=== PATIENT | female | born 1950 | race African-American/Black ===

== ENCOUNTER 2021-04-23 08:29 | Outpatient (CLI) | payer MEDICARE, MEDICAID | END 2021-04-23 08:30 | disposition home or self-care (01) | LOC: BICMAMMO 08:29 → MERGE 08:29 → BICMAMMO 08:30 | PROVIDERS: ATTEND Family Medicine | DX: Z12.31 Encounter for screening mammogram for malignant neoplasm of breast (principal); Z13.820 Encounter for screening for osteoporosis; N95.9 Unspecified menopausal and perimenopausal disorder; Z80.3 Family history of malignant neoplasm of breast | CPT/HCPCS: 77063; 77067; 77080 ==

== ENCOUNTER 2021-05-22 15:13 | Inpatient (IN) | payer MEDICARE, MEDICAID ==
[~2021-05-22 15:13] MED LIST: Heparin 10,000 UNITS/ 10 ML VIAL ONE
[2021-05-22] MEDS ORDERED: EPINEPHrine 1 MG/10 ML Abboject SYRINGE ONE (15:18)
[2021-05-22] MEDS ORDERED: Rocuronium Bromide 10 MG/ML (10ML VIAL) ONE (15:40)
[2021-05-22] MEDS ORDERED: Ketamine 50 MG/ML (10ML VIAL) ONE (15:40)
[2021-05-22 15:41] LABS: #Eosinphils 0.2 thou/uL (0.0-0.7); #Lymphocytes 2.3 thou/uL (1.20-3.40); #Monocytes 0.6 thou/uL (0.11-0.59); #Neutrophils 6.1 thou/uL (1.40-6.50); %Basophils 0.4 % (0.0-1.0); %Eosinophils 2.2 % (0.0-10.0); %Lymphocytes 24.7 % (21.0-51.0); %Monocytes 6.1 % (0.0-10.0); %Neutrophils 66.5 % (42.0-75.0); Hemoglobin 11.1 g/dL (12.0-16.0); Mean Corpuscular HGB CONC 31.9 g/dL (32.0-36.0); Mean Corpuscular Hemoglobin 29.6 pg (27.0-31.0); Mean Corpuscular Volume 92.6 fL (78.0-98.0); Mean Platelet Volume 7.7 fL (7.4-10.4); Platelet Count 282 thou/uL (130-400); RBC Distribution Width 12.9 % (11.5-14.5); Red Blood Cell (RBC) Count 3.76 mill/uL (4.20-5.40); White Blood Cell (WBC) Count 9.2 thou/uL (4.8-10.8)
[2021-05-22 16:06] LABS: ALT (SGPT) 28 U/L (8-55); AST (SGOT) 27 U/L (5-34); Albumin 3.5 g/dL (3.4-4.8); Alkaline Phosphatase 101 U/L (40-110); Anion Gap 15 mmol/L (10-20); BUN (Urea Nitrogen) 41 mg/dL (9.8-20.1); Bilirubin, Total 0.2 mg/dL (0.2-1.2); Calc. Creatinine Clearance 0 mL/min (70-130); Calcium 9.3 mg/dL (7.8-10.44); Carbon Dioxide 13 mmol/L (23-31); Chloride 112 mmol/L (98-107); Globulin 4.8 g/dL (2.4-3.5); Glucose 253 mg/dL (80-115); Protein, Total 8.3 g/dL (5.8-8.1); Sodium 131 mmol/L (136-145)
[2021-05-22 16:12] LABS: Potassium 9.1 mmol/L (3.5-5.1)
[2021-05-22 16:21] LABS: Bilirubin Negative (Negative); Blood, Urine Trace (Negative); Glucose, Urine (Dipstick) Negative (Negative); Ketone, Urine Trace mg/dL (Negative); Leukocyte Negative (Negative); Nitrite Negative (Negative); Protein, Urine (Dipstick) Trace mg/dL (Neg-Trace); Urobilinogen 0.2 mg/dL (Less than 2)
[2021-05-22 16:23] LABS: Clarity Clear (Clear)
[2021-05-22 16:27] LABS: Bacteria/HPF Rare-Few HPF (None Seen); RBC/HPF 0-3 HPF (0-3); Squamous Epithelial 0-3 HPF (0-3); WBC/HPF 0-3 HPF (0-3)
[2021-05-22 16:30] LABS: Actual Bicarbonate (HCO3a) 13.3 mEq/L (22-28); Analyzer IN Cardio ER; Base Excess (BEa) -13.5 mEq/L (-2.0 to +3.0); CO2 Tension 34.3 mmHg (35.0-45.0); Calcium, Ionized (arterial) 1.21 mmol/L (1.12-1.30); Carboxyhemoglobin (COHb) 0.3 gm% (0.0-3.0); Hemoglobin (Hb) 11.3 g/dL (12.0-16.0); Potassium - ABG Lab 8.49 mmol/L (3.70-5.30)
[2021-05-22] MEDS ORDERED: Insulin Regular 300 UNITS/3 ML VIAL ONE (16:32)
[2021-05-22] MEDS ORDERED: Calcium Chloride 1 GM/10 ML Abboject SYRINGE ONE ×2 (16:32→16:48)
[2021-05-22] MEDS ORDERED: Sodium Bicarb 50 MEQ/50 ML Abboject 8.4% SYRINGE ONE (16:32)
[2021-05-22 16:37] LABS: ALV-art Gradient 291.925 mmHg (0-20); Puncture Site RRA; pH, Arterial 7.21 (7.35-7.45)
[2021-05-22] MEDS ORDERED: Norepinephrine 8 MG/0.9% NS 0 ML ONE (16:45)
[2021-05-22] MEDS ORDERED: Fentanyl BOLUS 250 ML IVPB PRN (16:45)
[2021-05-22] MEDS ORDERED: Fentanyl CADD 100 ML IV SCH (16:45)
[2021-05-22] MEDS ORDERED: Norepinephrine 8 MG/0.9% NS 250 ML ONE (16:50)
[2021-05-22] MEDS ORDERED: Ventilator Sedation Protocol 1 EACH FS SCH (17:00)
[2021-05-22] MEDS ORDERED: Albuterol Sulfate 2.5 mg/3 ml Neb ONE (17:04)
[2021-05-22] MEDS ORDERED: Albuterol Sulfate 2.5 mg/0.5 ml Neb ONE (17:04)
[2021-05-22 17:07] LABS: SARS-CoV-2 NAA Rapid Test Not Detected (NotDetected)
[2021-05-22] MEDS ORDERED: Electrolyte Replacement Protocol 1 EACH FS SCH (17:15)
[2021-05-22] MEDS ORDERED: Propofol 1,000 MG/100 ML VIAL IV ONE (17:19)
[2021-05-22 17:27] LABS: Actual Bicarbonate (HCO3a) 16.7 mEq/L (22-28); Analyzer IN Cardio ER; Base Excess (BEa) -6.8 mEq/L (-2.0 to +3.0); CO2 Tension 27.4 mmHg (35.0-45.0); Carboxyhemoglobin (COHb) 0.3 gm% (0.0-3.0); Hemoglobin (Hb) 11.2 g/dL (12.0-16.0); O2 Tension (PaO2), arterial 89.1 mmHg (> 80.0); Potassium - ABG Lab 7.82 mmol/L (3.70-5.30)
[2021-05-22 17:29] LABS: Puncture Site RRA
[2021-05-22 17:56] LABS: Magnesium 1.8 mg/dL (1.6-2.6)
[2021-05-22 18:11] LABS: T4 4.6 ug/dL (4.87-11.72)
[2021-05-22 18:12] LABS: HBSAB Concentration Less than 8.00 mIU/mL; HBSAg Index 0.32 S/CO (0-0.99); Hep B Core Total Ab Non-Reactive (NonReactive); Hep B Core Total Index 0.05 S/CO (0-0.79); Hep B Surf AB Non-Reactive (NonReactive); Hep B Surf Ag Non-Reactive S/CO (NonReactive); Hep C IgG Ab Non-Reactive (NonReactive); Hep C Index 0.11 S/CO (0-0.79)
[2021-05-22 18:43] LABS: HBSAg Index 0.32 S/CO (0-0.99); Hep B Surf Ag Non-Reactive S/CO (NonReactive)
[2021-05-22] MEDS ORDERED: Lorazepam 2 MG/ML VIAL SLOW IVP PRN (18:45)
[2021-05-22] MEDS ORDERED: Propofol BOLUS 1,000 MG/100 ML VIAL IV PRN (18:45)
[2021-05-22] MEDS ORDERED: Morphine 2 MG/ML VIAL SLOW IVP PRN (18:45)
[2021-05-22] MEDS ORDERED: Morphine 4 MG/ML VIAL SLOW IVP PRN (18:46)
[2021-05-22 19:15] LABS: Troponin I 0.012 ng/mL (< 0.028)
[2021-05-22] MEDS ORDERED: Piperacillin/Tazobactam 3.375 GM in Sodium Chloride 0.9% 100 ML IVPB SCH (19:15)
[2021-05-22 19:29] LABS: Anion Gap 13 mmol/L (10-20); BUN (Urea Nitrogen) 41 mg/dL (9.8-20.1); Calc. Creatinine Clearance 0 mL/min (70-130); Calcium 12.3 mg/dL (7.8-10.44); Carbon Dioxide 16 mmol/L (23-31); Chloride 112 mmol/L (98-107); Glucose 273 mg/dL (80-115); Potassium 6.9 mmol/L (3.5-5.1); Sodium 134 mmol/L (136-145)
[2021-05-22] MEDS: Propofol 1,000 MG/100 ML VIAL IV PRN (20:42)
[2021-05-22] MEDS: DOPamine 400 MG/D5W 250 ML 250 ML IVPB SCH (20:43)
[2021-05-22 22:10] LABS: #Basophils 0.1 thou/uL (0.0-0.2); #Lymphocytes 2.2 thou/uL (1.20-3.40); #Monocytes 0.4 thou/uL (0.11-0.59); #Neutrophils 11.6 thou/uL (1.40-6.50); %Basophils 0.4 % (0.0-1.0); %Eosinophils 0.1 % (0.0-10.0); %Lymphocytes 15.6 % (21.0-51.0); %Monocytes 2.8 % (0.0-10.0); %Neutrophils 81.2 % (42.0-75.0); Hemoglobin 11.4 g/dL (12.0-16.0); Mean Corpuscular HGB CONC 32.9 g/dL (32.0-36.0); Mean Corpuscular Hemoglobin 30.2 pg (27.0-31.0); Mean Corpuscular Volume 91.8 fL (78.0-98.0); Mean Platelet Volume 8.2 fL (7.4-10.4); Platelet Count 209 thou/uL (130-400); Red Blood Cell (RBC) Count 3.76 mill/uL (4.20-5.40); White Blood Cell (WBC) Count 14.3 thou/uL (4.8-10.8)
[2021-05-22 22:15] LABS: Troponin I 0.037 ng/mL (< 0.028)
[2021-05-22] MEDS: Heparin 5,000 UNITS/ML VIAL SC SCH (22:24)
[2021-05-22 22:30] LABS: Anion Gap 16 mmol/L (10-20); BUN (Urea Nitrogen) 5 mg/dL (9.8-20.1); Calc. Creatinine Clearance 164 mL/min (70-130); Calcium 9.6 mg/dL (7.8-10.44); Carbon Dioxide 26 mmol/L (23-31); Chloride 95 mmol/L (98-107); Glucose 151 mg/dL (80-115); Magnesium 1.7 mg/dL (1.6-2.6); Potassium 2.3 mmol/L (3.5-5.1); Sodium 135 mmol/L (136-145)
[2021-05-23] MEDS: Piperacillin/Tazobactam 3.375 GM in Sodium Chloride 0.9% 100 ML IVPB SCH ×4 (01:03→23:15)
[2021-05-23] MEDS: Propofol 1,000 MG/100 ML VIAL IV PRN ×3 (02:19→10:24)
[2021-05-23 03:53] LABS: Hemoglobin 11.2 g/dL (12.0-16.0); Mean Corpuscular HGB CONC 34.2 g/dL (32.0-36.0); Mean Corpuscular Hemoglobin 30.7 pg (27.0-31.0); Mean Corpuscular Volume 89.8 fL (78.0-98.0); Mean Platelet Volume 7.8 fL (7.4-10.4); Platelet Count 192 thou/uL (130-400); RBC Distribution Width 12.8 % (11.5-14.5); Red Blood Cell (RBC) Count 3.63 mill/uL (4.20-5.40); White Blood Cell (WBC) Count 14.9 thou/uL (4.8-10.8)
[2021-05-23 03:54] LABS: Band 4 % (5-11); Hypochromia SLIGHT = 6-15 cells (100X) (0-5/hpf); Lymphocytes 14 % (21-51); MDiff Complete? YES; Monocytes 9 % (0-10); Neutrophil 73 % (42-75); Platelet Morphology Comment Appears Adequate
[2021-05-23] MEDS: Insulin Regular 300 UNITS/3 ML VIAL SC PRN (04:10)
[2021-05-23 04:25] LABS: ALT (SGPT) 37 U/L (8-55); AST (SGOT) 34 U/L (5-34); Albumin 3.3 g/dL (3.4-4.8); Alkaline Phosphatase 114 U/L (40-110); Anion Gap 17 mmol/L (10-20); BUN (Urea Nitrogen) 18 mg/dL (9.8-20.1); Bilirubin, Total 0.6 mg/dL (0.2-1.2); Calc. Creatinine Clearance 59 mL/min (70-130); Calcium 9.9 mg/dL (7.8-10.44); Carbon Dioxide 21 mmol/L (23-31); Chloride 100 mmol/L (98-107); Globulin 4.5 g/dL (2.4-3.5); Glucose 276 mg/dL (80-115); Potassium 4.4 mmol/L (3.5-5.1); Protein, Total 7.8 g/dL (5.8-8.1); Sodium 134 mmol/L (136-145)
[2021-05-23] MEDS: DOPamine 400 MG/D5W 250 ML 250 ML IVPB SCH ×2 (05:13→23:19)
[2021-05-23] MEDS: Polyethylene Glycol 3350 17 GM Packet PER TUBE SCH (08:16)
[2021-05-23] MEDS: Heparin 5,000 UNITS/ML VIAL SC SCH ×2 (08:17→21:04)
[2021-05-23] MEDS: Famotidine/PF 20 mg/2ml Vial SLOW IVP SCH (08:17)
[2021-05-23] MEDS ORDERED: Dextrose 5% in Water 1,000 ML IV PRN (12:00)
[2021-05-23] MEDS ORDERED: Dextrose 50% Abboject 50 ML SYRINGE IVP PRN (12:00)
[2021-05-23] MEDS ORDERED: Magnesium 2 GM/50 ML 2 GM in Premix Bag 1 BAG IVPB SCH (12:00)
[2021-05-23] MEDS: Lantus 1000 UNITS/10 ML VIAL SC SCH (21:05)
[2021-05-24] MEDS: DOPamine 400 MG/D5W 250 ML 250 ML IVPB SCH (03:03)
[2021-05-24] MEDS: Insulin Regular 300 UNITS/3 ML VIAL SC PRN ×2 (03:06→12:27)
[2021-05-24 04:01] LABS: Hemoglobin 10.8 g/dL (12.0-16.0); Mean Corpuscular HGB CONC 33.7 g/dL (32.0-36.0); Mean Corpuscular Hemoglobin 30.6 pg (27.0-31.0); Mean Corpuscular Volume 90.9 fL (78.0-98.0); Mean Platelet Volume 7.9 fL (7.4-10.4); Platelet Count 186 thou/uL (130-400); RBC Distribution Width 13.4 % (11.5-14.5); Red Blood Cell (RBC) Count 3.53 mill/uL (4.20-5.40); White Blood Cell (WBC) Count 12.3 thou/uL (4.8-10.8)
[2021-05-24 04:03] LABS: Eosinophils 1 % (0-10); Lymphocytes 38 % (21-51); MDiff Complete? YES; Monocytes 5 % (0-10); Neutrophil 55 % (42-75); Reactive Lymphocytes 1 % (0-10)
[2021-05-24 04:05] LABS: ALT (SGPT) 28 U/L (8-55); AST (SGOT) 26 U/L (5-34); Albumin 3.3 g/dL (3.4-4.8); Alkaline Phosphatase 103 U/L (40-110); Anion Gap 15 mmol/L (10-20); BUN (Urea Nitrogen) 25 mg/dL (9.8-20.1); Bilirubin, Total 0.5 mg/dL (0.2-1.2); Calc. Creatinine Clearance 38 mL/min (70-130); Calcium 9.4 mg/dL (7.8-10.44); Carbon Dioxide 25 mmol/L (23-31); Chloride 103 mmol/L (98-107); Globulin 4.5 g/dL (2.4-3.5); Glucose 171 mg/dL (80-115); Potassium 4.6 mmol/L (3.5-5.1); Protein, Total 7.8 g/dL (5.8-8.1); Sodium 138 mmol/L (136-145)
[2021-05-24 05:44] VITALS: BMI 41.4
[2021-05-24] MEDS: Famotidine/PF 20 mg/2ml Vial SLOW IVP SCH (08:02)
[2021-05-24] MEDS: Piperacillin/Tazobactam 3.375 GM in Sodium Chloride 0.9% 100 ML IVPB SCH ×2 (08:02→16:20)
[2021-05-24] MEDS: Polyethylene Glycol 3350 17 GM Packet PER TUBE SCH (08:03)
[2021-05-24] MEDS: Heparin 5,000 UNITS/ML VIAL SC SCH ×2 (08:03→20:16)
[2021-05-24] MEDS: Sodium Chloride 0.9% 1,000 ML IV SCH (19:59)
[2021-05-24] MEDS: Lantus 1000 UNITS/10 ML VIAL SC SCH (20:15)
[2021-05-25] MEDS: Piperacillin/Tazobactam 3.375 GM in Sodium Chloride 0.9% 100 ML IVPB SCH ×4 (00:40→23:36)
[2021-05-25 04:41] LABS: ALT (SGPT) 19 U/L (8-55); AST (SGOT) 17 U/L (5-34); Albumin 3.1 g/dL (3.4-4.8); Alkaline Phosphatase 83 U/L (40-110); Anion Gap 12 mmol/L (10-20); BUN (Urea Nitrogen) 25 mg/dL (9.8-20.1); Bilirubin, Total 0.4 mg/dL (0.2-1.2); Calc. Creatinine Clearance 53 mL/min (70-130); Calcium 8.7 mg/dL (7.8-10.44); Carbon Dioxide 24 mmol/L (23-31); Chloride 107 mmol/L (98-107); Globulin 3.9 g/dL (2.4-3.5); Glucose 90 mg/dL (80-115); Magnesium 2.4 mg/dL (1.6-2.6); Potassium 4.2 mmol/L (3.5-5.1); Sodium 139 mmol/L (136-145)
[2021-05-25 05:00] LABS: Eosinophils 5 % (0-10); Hemoglobin 9.2 g/dL (12.0-16.0); Lymphocytes 29 % (21-51); MDiff Complete? YES; Mean Corpuscular HGB CONC 31.9 g/dL (32.0-36.0); Mean Corpuscular Hemoglobin 29.6 pg (27.0-31.0); Mean Corpuscular Volume 92.8 fL (78.0-98.0); Mean Platelet Volume 7.4 fL (7.4-10.4); Monocytes 8 % (0-10); Neutrophil 55 % (42-75); Platelet Count 152 thou/uL (130-400); RBC Distribution Width 13.2 % (11.5-14.5); Red Blood Cell (RBC) Count 3.13 mill/uL (4.20-5.40); White Blood Cell (WBC) Count 9.3 thou/uL (4.8-10.8)
[2021-05-25] MEDS: Famotidine/PF 20 mg/2ml Vial SLOW IVP SCH (07:28)
[2021-05-25] MEDS: Heparin 5,000 UNITS/ML VIAL SC SCH ×2 (07:29→21:13)
[2021-05-25] MEDS: Polyethylene Glycol 3350 17 GM Packet PER TUBE SCH (07:29)
[2021-05-25] MEDS: Insulin Regular 300 UNITS/3 ML VIAL SC PRN ×2 (09:30→17:54)
[2021-05-25] MEDS: Sodium Chloride 0.9% 1,000 ML IV SCH (11:58)
[2021-05-25] MEDS: Lantus 1000 UNITS/10 ML VIAL SC SCH (21:01)
[2021-05-26 05:04] LABS: Hemoglobin 9.4 g/dL (12.0-16.0); Mean Corpuscular HGB CONC 31.5 g/dL (32.0-36.0); Mean Corpuscular Hemoglobin 29.4 pg (27.0-31.0); Mean Corpuscular Volume 93.4 fL (78.0-98.0); Mean Platelet Volume 7.5 fL (7.4-10.4); Platelet Count 160 thou/uL (130-400); RBC Distribution Width 13.1 % (11.5-14.5); Red Blood Cell (RBC) Count 3.19 mill/uL (4.20-5.40); White Blood Cell (WBC) Count 9.2 thou/uL (4.8-10.8)
[2021-05-26 05:09] LABS: ALT (SGPT) 16 U/L (8-55); AST (SGOT) 15 U/L (5-34); Albumin 3.2 g/dL (3.4-4.8); Alkaline Phosphatase 77 U/L (40-110); Anion Gap 10 mmol/L (10-20); BUN (Urea Nitrogen) 14 mg/dL (9.8-20.1); Bilirubin, Total 0.3 mg/dL (0.2-1.2); Calc. Creatinine Clearance 82 mL/min (70-130); Carbon Dioxide 23 mmol/L (23-31); Chloride 108 mmol/L (98-107); Globulin 4.2 g/dL (2.4-3.5); Glucose 153 mg/dL (80-115); Potassium 4.2 mmol/L (3.5-5.1); Protein, Total 7.4 g/dL (5.8-8.1); Sodium 137 mmol/L (136-145)
[2021-05-26] MEDS: Sodium Chloride 0.9% 1,000 ML IV SCH (05:33)
[2021-05-26 05:49] LABS: Eosinophils 3 % (0-10); Lymphocytes 34 % (21-51); MDiff Complete? YES; Monocytes 5 % (0-10); Neutrophil 58 % (42-75)
[2021-05-26] MEDS: Polyethylene Glycol 3350 17 GM Packet PER TUBE SCH (08:52)
[2021-05-26] MEDS: Piperacillin/Tazobactam 3.375 GM in Sodium Chloride 0.9% 100 ML IVPB SCH ×2 (08:52→16:44)
[2021-05-26] MEDS: Heparin 5,000 UNITS/ML VIAL SC SCH ×2 (08:52→21:10)
[2021-05-26] MEDS: Insulin Regular 300 UNITS/3 ML VIAL SC PRN ×2 (11:39→16:44)
[2021-05-26] MEDS: Lantus 1000 UNITS/10 ML VIAL SC SCH (21:11)
[2021-05-27] MEDS: Piperacillin/Tazobactam 3.375 GM in Sodium Chloride 0.9% 100 ML IVPB SCH ×2 (00:05→09:08)
[2021-05-27 05:27] LABS: ALT (SGPT) 17 U/L (8-55); AST (SGOT) 15 U/L (5-34); Albumin 3.5 g/dL (3.4-4.8); Alkaline Phosphatase 82 U/L (40-110); Anion Gap 13 mmol/L (10-20); BUN (Urea Nitrogen) 10 mg/dL (9.8-20.1); Bilirubin, Total 0.4 mg/dL (0.2-1.2); Calc. Creatinine Clearance 92 mL/min (70-130); Calcium 9.6 mg/dL (7.8-10.44); Carbon Dioxide 21 mmol/L (23-31); Chloride 107 mmol/L (98-107); Globulin 4.6 g/dL (2.4-3.5); Glucose 197 mg/dL (80-115); Potassium 4.5 mmol/L (3.5-5.1); Protein, Total 8.1 g/dL (5.8-8.1); Sodium 136 mmol/L (136-145)
[2021-05-27 05:30] LABS: Magnesium 1.9 mg/dL (1.6-2.6)
[2021-05-27 06:15] LABS: Hemoglobin 10.2 g/dL (12.0-16.0); Mean Corpuscular HGB CONC 31.8 g/dL (32.0-36.0); Mean Corpuscular Hemoglobin 29.5 pg (27.0-31.0); Mean Platelet Volume 7.6 fL (7.4-10.4); Platelet Count 186 thou/uL (130-400); RBC Distribution Width 13.2 % (11.5-14.5); Red Blood Cell (RBC) Count 3.47 mill/uL (4.20-5.40); White Blood Cell (WBC) Count 10.5 thou/uL (4.8-10.8)
[2021-05-27] MEDS: Polyethylene Glycol 3350 17 GM Packet PER TUBE SCH ×2 (09:08→09:15)
[2021-05-27] MEDS: Heparin 5,000 UNITS/ML VIAL SC SCH ×2 (09:09→21:20)
[2021-05-27 09:39] LABS: Eosinophils 4 % (0-10); Lymphocytes 34 % (21-51); MDiff Complete? YES; Monocytes 8 % (0-10); Neutrophil 49 % (42-75); Platelet Morphology Comment Appears Adequate; Polychromasia SLIGHT = 2-3 cells (100X) (0-2/hpf); Reactive Lymphocytes 4 % (0-10)
[2021-05-27] MEDS ORDERED: Cyclobenzaprine 10 MG TAB PO PRN (18:44)
[2021-05-27] MEDS ORDERED: Rosuvastatin 20 MG TAB PO SCH (21:00)
[2021-05-27] MEDS: Gabapentin 300 MG CAP PO SCH (21:20)
[2021-05-27] MEDS: Lantus 1000 UNITS/10 ML VIAL SC SCH (21:21)
[2021-05-27] MEDS: Sodium Chloride 0.9% 1,000 ML IV SCH (23:30)
[2021-05-28 06:24] LABS: Hemoglobin 9.4 g/dL (12.0-16.0); Mean Corpuscular Hemoglobin 29.5 pg (27.0-31.0); Mean Corpuscular Volume 92.3 fL (78.0-98.0); Mean Platelet Volume 7.3 fL (7.4-10.4); Platelet Count 180 thou/uL (130-400); RBC Distribution Width 13.3 % (11.5-14.5); White Blood Cell (WBC) Count 8.1 thou/uL (4.8-10.8)
[2021-05-28 06:34] LABS: Eosinophils 2 % (0-10); Lymphocytes 36 % (21-51); MDiff Complete? YES; Monocytes 8 % (0-10); Neutrophil 54 % (42-75)
[2021-05-28 06:44] LABS: ALT (SGPT) 14 U/L (8-55); AST (SGOT) 14 U/L (5-34); Albumin 3.4 g/dL (3.4-4.8); Alkaline Phosphatase 76 U/L (40-110); Anion Gap 9 mmol/L (10-20); BUN (Urea Nitrogen) 11 mg/dL (9.8-20.1); Bilirubin, Total 0.3 mg/dL (0.2-1.2); Calc. Creatinine Clearance 106 mL/min (70-130); Calcium 9.3 mg/dL (7.8-10.44); Carbon Dioxide 24 mmol/L (23-31); Chloride 109 mmol/L (98-107); Glucose 163 mg/dL (80-115); Magnesium 1.8 mg/dL (1.6-2.6); Potassium 4.1 mmol/L (3.5-5.1); Protein, Total 7.4 g/dL (5.8-8.1); Sodium 138 mmol/L (136-145)
[2021-05-28] MEDS ORDERED: glipiZIDE 5 MG TAB PO SCH (07:30)
[2021-05-28] MEDS ORDERED: Polyethylene Glycol 3350 17 GM Packet PO SCH (09:00)
[2021-05-28] MEDS ORDERED: Montelukast Sodium 10 mg Tablet PO SCH (09:00)
[2021-05-28] MEDS ORDERED: Amlodipine 10 MG TAB PO SCH (09:00)
[2021-05-28] MEDS ORDERED: Ezetimibe 10 MG TAB PO SCH (09:00)
[2021-05-28] MEDS: Gabapentin 300 MG CAP PO SCH (09:08)
[2021-05-28] MEDS: Heparin 5,000 UNITS/ML VIAL SC SCH (09:10)
[2021-05-28 12:25] VITALS: BP 119/67; TEMP 98.1
== END 2021-05-28 15:13 | disposition home or self-care (01) | DRG 208 ==
LOC: ERS 15:13 → CCU 15:50 → 2NO 05-25 14:04
PROVIDERS: ADMIT Internal Medicine; ATTEND Internal Medicine
PROC: 0D9670Z Drainage of Stomach with Drainage Device, Via Natural or Artificial Opening (ICD-10-PCS; principal; 2021-05-22)
PROC: 5A1935Z Respiratory Ventilation, Less than 24 Consecutive Hours (ICD-10-PCS; 2021-05-22)
PROC: 0BH17EZ Insertion of Endotracheal Airway into Trachea, Via Natural or Artificial Opening (ICD-10-PCS; 2021-05-22)
PROC: 06HY33Z Insertion of Infusion Device into Lower Vein, Percutaneous Approach (ICD-10-PCS; 2021-05-22)
PROC: 3E0G76Z Introduction of Nutritional Substance into Upper GI, Via Natural or Artificial Opening (ICD-10-PCS; 2021-05-22)
PROC: 3E043XZ Introduction of Vasopressor into Central Vein, Percutaneous Approach (ICD-10-PCS; 2021-05-22)
PROC: 06HY33Z Insertion of Infusion Device into Lower Vein, Percutaneous Approach (ICD-10-PCS; 2021-05-22)
PROC: 5A1D70Z Performance of Urinary Filtration, Intermittent, Less than 6 Hours Per Day (ICD-10-PCS; 2021-05-22)
PROC: 5A2204Z Restoration of Cardiac Rhythm, Single (ICD-10-PCS; 2021-05-22)
DX: J96.01 Acute respiratory failure with hypoxia (principal); G93.41 Metabolic encephalopathy; N17.9 Acute kidney failure, unspecified; I44.2 Atrioventricular block, complete; I50.32 Chronic diastolic (congestive) heart failure; I13.0 Hypertensive heart and chronic kidney disease with heart failure and stage 1 through stage 4 chronic kidney disease, or unspecified chronic kidney disease; I82.612 Acute embolism and thrombosis of superficial veins of left upper extremity; E87.2 Acidosis; Z68.41 Body mass index [BMI] 40.0-44.9, adult; E87.1 Hypo-osmolality and hyponatremia; I42.8 Other cardiomyopathies; E87.5 Hyperkalemia; Z20.822 Contact with and (suspected) exposure to COVID-19; R00.1 Bradycardia, unspecified; I25.10 Atherosclerotic heart disease of native coronary artery without angina pectoris; E11.65 Type 2 diabetes mellitus with hyperglycemia; E11.22 Type 2 diabetes mellitus with diabetic chronic kidney disease; G47.33 Obstructive sleep apnea (adult) (pediatric); E78.00 Pure hypercholesterolemia, unspecified; I08.0 Rheumatic disorders of both mitral and aortic valves; E66.01 Morbid (severe) obesity due to excess calories; E88.09 Other disorders of plasma-protein metabolism, not elsewhere classified; N18.30 Chronic kidney disease, stage 3 unspecified; D63.1 Anemia in chronic kidney disease; Z90.49 Acquired absence of other specified parts of digestive tract; Z90.710 Acquired absence of both cervix and uterus; Z98.49 Cataract extraction status, unspecified eye; Z87.891 Personal history of nicotine dependence; Z78.1 Physical restraint status; Z79.4 Long term (current) use of insulin; Z79.891 Long term (current) use of opiate analgesic; Z79.899 Other long term (current) drug therapy; Z79.84 Long term (current) use of oral hypoglycemic drugs; Z88.8 Allergy status to other drugs, medicaments and biological substances; Z88.5 Allergy status to narcotic agent; Z88.0 Allergy status to penicillin; M48.061 Spinal stenosis, lumbar region without neurogenic claudication; Z96.653 Presence of artificial knee joint, bilateral; Z96.643 Presence of artificial hip joint, bilateral
CPT/HCPCS: 36415; 36416; 36556; 36600; 51702; 71045; 76770; 80053; 81003; 82805; 83605; 83735; 83880; 83930; 84145; 84436; 84443; 84484; 85007; 85025; 85027; 86704; 86706; 86803; 87040; 87086; 87340; 90935; 92953; 93005; 93010; 93306; 93970; 94002; 94003; 94760; 96365; 96366; 96368; 96374; 96375; 96376; 99292; G0257; J0171; J1265; J1642; J1644; J1815; J2543; J2704; J3010; J3475; J3490; J7050; J7611; S0028; U0002

== ENCOUNTER 2022-05-26 12:21 | Outpatient (CLI) | payer OTHER | END 2022-05-26 12:22 | disposition home or self-care (01) | LOC: TBSIIMAG 12:21 | PROVIDERS: ATTEND Nurse Practitioner Pediatrics | DX: M47.22 Other spondylosis with radiculopathy, cervical region (principal); M48.02 Spinal stenosis, cervical region; K11.8 Other diseases of salivary glands | CPT/HCPCS: 72141 ==

== ENCOUNTER 2022-12-26 10:32 | Emergency (ER) | payer OTHER ==
[2022-12-26] MEDS ORDERED: Ketorolac Tromethamine 30 MG/ML VIAL ONE (10:58)
[2022-12-26] MEDS ORDERED: Dexamethasone 10 MG/ML VIAL ONE (10:58)
[2022-12-26] MEDS ORDERED: LORazepam 2 MG/ML SYR.(CARPUJECT) ONE (10:58)
[2022-12-26 11:25] LABS: #Eosinphils 0.2 thou/uL (0.0-0.7); #Monocytes 0.8 thou/uL (0.11-0.59); #Neutrophils 5.8 thou/uL (1.40-6.50); %Basophils 0.4 % (0.0-1.0); %Eosinophils 2.3 % (0.0-10.0); %Lymphocytes 29.4 % (21.0-51.0); %Monocytes 8.3 % (0.0-10.0); %Neutrophils 59.3 % (42.0-75.0); Hematocrit 38.1 % (36.0-47.0); Hemoglobin 12.5 g/dL (12.0-16.0); Mean Corpuscular HGB CONC 32.8 g/dL (32.0-36.0); Mean Corpuscular Hemoglobin 29.4 pg (27.0-31.0); Mean Corpuscular Volume 89.6 fl (78.0-98.0); Mean Platelet Volume 9.7 fL (7.4-10.4); Platelet Count 290 10x3/uL (130-400); Red Blood Cell (RBC) Count 4.25 mill/uL (4.20-5.40); White Blood Cell (WBC) Count 9.8 10x3/uL (4.8-10.8)
[2022-12-26 11:49] LABS: ALT (SGPT) 21 U/L (8-55); AST (SGOT) 23 U/L (5-34); Albumin 4.1 g/dL (3.4-4.8); Alkaline Phosphatase 95 U/L (40-110); Anion Gap 17 mmol/L (10-20); BUN (Urea Nitrogen) 32 mg/dL (9.8-20.1); Bilirubin, Total 0.2 mg/dL (0.2-1.2); Calc. Creatinine Clearance 0 mL/min (70-130); Calcium 9.4 mg/dL (7.8-10.44); Carbon Dioxide 20 mmol/L (23-31); Chloride 104 mmol/L (98-107); Estimated GFR 34; Globulin 4.2 g/dL (2.4-3.5); Glucose 139 mg/dL (80-115); Protein, Total 8.3 g/dL (5.8-8.1); Sodium 137 mmol/L (136-145)
[2022-12-26 11:53] LABS: Troponin I Less than 0.010 ng/mL (< 0.028)
[2022-12-26 13:06] LABS: SARS-CoV-2 NAA Rapid Test Not Detected (NotDetected)
[2022-12-26 14:11] LABS: Bacteria/HPF None Seen HPF (None Seen); Bilirubin Negative (Negative); Blood, Urine Negative (Negative); CAUTI Indications for Culture Alt mental st,lethar; Clarity Turbid (Clear); Glucose, Urine (Dipstick) Normal (Negative); Ketone, Urine Negative (Negative); Leukocyte Negative Leu/uL (Negative); Nitrite Negative (Negative); Protein, Urine (Dipstick) Negative (Neg-Trace); RBC/HPF 0-3 HPF (0-3); Specific Gravity, Urine 1.021 (1.002-1.036); Squamous Epithelial 21-50 HPF (0-3); Urobilinogen Normal mg/dL (Less than 2); WBC/HPF 0-3 HPF (0-3); pH, Urine 5.5 (5.0-9.0)
[2022-12-26 14:13] LABS: Urine Culture Reflex No No
== END 2022-12-26 15:24 | disposition home or self-care (01) ==
LOC: ERS 10:32
DX: M54.12 Radiculopathy, cervical region (principal); E86.0 Dehydration; E11.9 Type 2 diabetes mellitus without complications; I10 Essential (primary) hypertension; Z20.822 Contact with and (suspected) exposure to COVID-19
CPT/HCPCS: 0240U; 70450; 71045; 72125; 80053; 81001; 83605; 83880; 84484; 85025; 87040; 93005; J2060; 36415; 51701; 96361; 96374; 96375; J1100; J1885

== ENCOUNTER 2023-03-16 06:12 | Day surgery (SDC) | payer OTHER, MEDICAID ==
[2023-03-13 13:49] VITALS: BMI 49.4
[2023-03-16] MEDS ORDERED: PROPOFOL 200 MG/20 ML VIAL ONE (08:08)
[2023-03-16] MEDS ORDERED: Lidocaine 1% PF 5 ML VIAL ONE ×2 (08:08→08:10)
[2023-03-16] MEDS ORDERED: PROPOFOL 20 ML ONE (08:09)
== END 2023-03-16 09:34 | disposition home or self-care (01) ==
LOC: SDC 06:12
PROVIDERS: ATTEND Internal Medicine Gastroenterology
PROC: 0DJ08ZZ Inspection of Upper Intestinal Tract, Via Natural or Artificial Opening Endoscopic (ICD-10-PCS; principal; 2023-03-16)
PROC: 0D5N8ZZ Destruction of Sigmoid Colon, Via Natural or Artificial Opening Endoscopic (ICD-10-PCS; 2023-03-16)
DX: D12.3 Benign neoplasm of transverse colon (principal); I50.9 Heart failure, unspecified; E11.00 Type 2 diabetes mellitus with hyperosmolarity without nonketotic hyperglycemic-hyperosmolar coma (NKHHC); K59.01 Slow transit constipation; E78.5 Hyperlipidemia, unspecified; I11.0 Hypertensive heart disease with heart failure; E66.01 Morbid (severe) obesity due to excess calories; K21.9 Gastro-esophageal reflux disease without esophagitis; E11.9 Type 2 diabetes mellitus without complications; Z88.5 Allergy status to narcotic agent; Z88.1 Allergy status to other antibiotic agents; Z88.0 Allergy status to penicillin; Z86.010 Personal history of colon polyps; E78.00 Pure hypercholesterolemia, unspecified; Z79.84 Long term (current) use of oral hypoglycemic drugs; Z79.899 Other long term (current) drug therapy; Z68.42 Body mass index [BMI] 45.0-49.9, adult
CPT/HCPCS: 36416; 88305; J2704

== ENCOUNTER 2023-03-30 09:54 | Outpatient (CLI) | payer OTHER | END 2023-03-30 09:55 | disposition home or self-care (01) | LOC: RAD 09:54 | PROVIDERS: ATTEND Internal Medicine Critical Care Medicine | DX: R06.00 Dyspnea, unspecified (principal) | CPT/HCPCS: 71046 ==

== ENCOUNTER 2023-04-14 13:26 | Outpatient (CLI) | payer OTHER, MEDICAID | END 2023-04-14 13:27 | disposition home or self-care (01) | LOC: MRI 13:26 | PROVIDERS: ATTEND Neurological Surgery | DX: M51.36 Other intervertebral disc degeneration, lumbar region (principal); M47.816 Spondylosis without myelopathy or radiculopathy, lumbar region; M47.814 Spondylosis without myelopathy or radiculopathy, thoracic region; M47.817 Spondylosis without myelopathy or radiculopathy, lumbosacral region | CPT/HCPCS: 72120; 72148 ==

== ENCOUNTER 2023-07-22 13:13 | Outpatient (CLI) | payer OTHER, MEDICAID | END 2023-07-22 13:14 | disposition home or self-care (01) | LOC: BICMAMMO 13:13 | PROVIDERS: ATTEND Family Medicine | DX: Z12.31 Encounter for screening mammogram for malignant neoplasm of breast (principal); Z13.820 Encounter for screening for osteoporosis; N63.20 Unspecified lump in the left breast, unspecified quadrant; Z78.0 Asymptomatic menopausal state; Z80.3 Family history of malignant neoplasm of breast | CPT/HCPCS: 77063; 77067; 77080 ==

== ENCOUNTER 2023-08-07 09:12 | Outpatient (CLI) | payer OTHER, MEDICAID | END 2023-08-07 09:13 | disposition home or self-care (01) | LOC: BICMAMMO 09:12 | PROVIDERS: ATTEND Family Medicine | DX: N63.20 Unspecified lump in the left breast, unspecified quadrant (principal); Z80.3 Family history of malignant neoplasm of breast; R92.8 Other abnormal and inconclusive findings on diagnostic imaging of breast | CPT/HCPCS: 76642; 77065; G0279 ==

== ENCOUNTER 2023-10-28 06:41 | Emergency (ER) | payer OTHER ==
[2023-10-28 08:00] LABS: #Basophils Less than 0.03 10x3/uL (0.0-0.2); %Basophils 0.2 % (0.0-1.0); %Eosinophils 0.8 % (0.0-10.0); %Lymphocytes 13.1 % (21.0-51.0); %Monocytes 11.6 % (0.0-10.0); %Neutrophils 73.8 % (42.0-75.0); Hematocrit 37.9 % (36.0-47.0); Hemoglobin 12.4 g/dL (12.0-16.0); Mean Corpuscular HGB CONC 32.7 g/dL (32.0-36.0); Mean Corpuscular Hemoglobin 28.5 pg (27.0-31.0); Mean Corpuscular Volume 87.1 fL (78.0-98.0); Mean Platelet Volume 9.8 fL (7.4-10.4); Platelet Count 245 10x3/uL (130-400); RBC Distribution Width 14.2 % (11.5-14.5); Red Blood Cell (RBC) Count 4.35 mill/uL (4.20-5.40)
[2023-10-28 08:17] LABS: ALT (SGPT) 28 U/L (8-55); AST (SGOT) 20 U/L (5-34); Albumin 3.2 g/dL (3.4-4.8); Alkaline Phosphatase 79 U/L (40-110); Anion Gap 11 mmol/L (10-20); BUN (Urea Nitrogen) 11 mg/dL (9.8-20.1); Bilirubin, Total 0.4 mg/dL (0.2-1.2); Calc. Creatinine Clearance 0 mL/min (70-130); Calcium 9.5 mg/dL (7.8-10.44); Carbon Dioxide 23 mmol/L (23-31); Chloride 101 mmol/L (98-107); Estimated GFR 57; Globulin 4.7 g/dL (2.4-3.5); Glucose 326 mg/dL (80-115); Potassium 4.6 mmol/L (3.5-5.1); Protein, Total 7.9 g/dL (5.8-8.1); Sodium 130 mmol/L (136-145)
[2023-10-28] MEDS ORDERED: fentaNYL 50 mcg/mL 1 mL Vial ONE ×2 (08:36→10:21)
== END 2023-10-28 15:00 | disposition home or self-care (01) ==
LOC: ERS 06:41
DX: M25.551 Pain in right hip (principal); I10 Essential (primary) hypertension; E11.9 Type 2 diabetes mellitus without complications; Z79.4 Long term (current) use of insulin
CPT/HCPCS: 71045; 73502; 80053; 83605; 85025; 87040; 93005; 93971; J3010; 36415; 96374; 96376

== ENCOUNTER 2024-03-17 13:04 | Outpatient (CLI) | payer OTHER | END 2024-03-17 13:05 | disposition home or self-care (01) | LOC: RAD 13:04 | PROVIDERS: ATTEND Internal Medicine Critical Care Medicine | DX: R06.00 Dyspnea, unspecified (principal) | CPT/HCPCS: 71046 ==

== ENCOUNTER 2024-12-12 13:32 | Outpatient (CLI) | payer OTHER, MEDICAID | END 2024-12-12 13:33 | disposition home or self-care (01) | LOC: BICMAMMO 13:32 | PROVIDERS: ATTEND Family Medicine | DX: Z12.31 Encounter for screening mammogram for malignant neoplasm of breast (principal); Z80.3 Family history of malignant neoplasm of breast | CPT/HCPCS: 77063; 77067 ==

== ENCOUNTER 2025-03-15 10:28 | Outpatient (CLI) | payer OTHER | END 2025-03-15 10:29 | disposition home or self-care (01) | PROVIDERS: ATTEND Family Medicine | DX: M47.816 Spondylosis without myelopathy or radiculopathy, lumbar region (principal); I50.22 Chronic systolic (congestive) heart failure; R26.81 Unsteadiness on feet ==